=== PATIENT | female | born 1985 | race Caucasian/White ===

== ENCOUNTER 2022-10-27 17:33 | Emergency (ER) | payer OTHER ==
[~2022-10-27] VITALS: Ht 157.5 cm; Wt 61.4 kg
[2022-10-27] MEDS ORDERED: ACETAMINOPHEN 325 MG TABLET PO ONE (18:00)
[2022-10-27] MEDS ORDERED: ONDANSETRON HCL 4 MG/2 ML VIAL IVP ONE (18:00)
[2022-10-27 19:55] VITALS: BP 122/73
== END 2022-10-27 21:10 | disposition home or self-care (01) ==
LOC: EMS 17:34
DX: S09.90XA Unspecified injury of head, initial encounter (principal); F31.9 Bipolar disorder, unspecified; F20.9 Schizophrenia, unspecified; F17.210 Nicotine dependence, cigarettes, uncomplicated; W22.8XXA Striking against or struck by other objects, initial encounter; Y93.89 Activity, other specified; Y92.89 Other specified places as the place of occurrence of the external cause; Y99.8 Other external cause status
CPT/HCPCS: 99283; 96374; J2405